=== PATIENT | male | born 1955 | race Caucasian/White ===

== ENCOUNTER 2018-07-04 00:37 | Outpatient (CLI) | payer BC, SELFPAY ==
--- NOTE | 2018-07-04 09:00 | DI.RAD_ITS ---
SYMPTOM/DIAGNOSIS: DYSPHAGIA, R13.10 BARIUM SWALLOW: Fluoroscopy Time: 18 seconds The preliminary films of the chest and neck are unremarkable. Barium was ingested and showed grossly normal hypopharyngeal motility. Esophageal mucosa and motility appears intact. A 12 mm. barium tablet passed through the esophagus into the stomach. CONCLUSION: Negative barium swallow.
== END 2018-07-04 00:57 ==
PROVIDERS: PCP Internal Medicine; Visit Provider Internal Medicine
DX: R13.10 Dysphagia, unspecified (principal)
CPT/HCPCS: 74220

== ENCOUNTER 2018-08-12 06:18 | Day surgery (SDC) | payer BC, SELFPAY ==
[2018-08-12 06:28] VITALS: BP 99/72; PULSE 50; RESP 18; TEMP 35.5; O2SAT 98
--- NOTE | 2018-08-12 06:53 | W.PM.ENDDOP ---
Date of service: 08/12/18 Time of Service: : Endoscopy Report DATE OF PROCEDURE: 08/12/18 PRE-OP DIAGNOSIS: Dysphagia POST-OP DIAGNOSIS: other (mild gastritis and esophagitis) PROCEDURE: EGD with biopsies SURGEON: Gem Johnson ANESTHESIA: other (General/ ASA 2/massiel Jaramillo, MAYA) ESTIMATED BLOOD LOSS: 2 PATHOLOGY: other (Antrum bx and GE junction bx) COMPLICATIONS: None DISPOSITION: same day INDICATIONS: Mr. Magana is a pleasant 63 year old male with a history of GERD and dysphagia. Last EGD was in 2013. Risks, benefits and complications have been reviewed. Complications include but are not limited to bleeding, pain, perforation, sore throat, aspiration, and adverse reaction to the medications. Questions were entertained and answered to their satisfaction and they wished to proceed. No guarantees were given or implied. PROCEDURE START TIME: PROCEDURE END TIME: : FINDINGS: Mild inflammation of the stomach Bile reflux noted Mild inflammation of the esophagus with mild scarring PROCEDURE DESCRIPTION: After informed consent was obtained the patient was take to the procedure room and placed in a supine position. Monitors were applied and a time out was done. The patients name, date of , procedure type, allergies to medications and metal in their body was reviewed. A bite block was placed and the patient was sedated. Once sedated and comfortable the gastroscope was advanced through the oropharynx which was grossly normal into the esophagus. The proximal and mid-esophagus were normal. In the distal esophagus there was mild inflammation noted as well as some mild scarring. The scope was advanced into the stomach and through the pylorus into the 3rd portion of the duodenum. The duodenum was noted to be normal. The scope was retracted back into the stomach, bile was noted in the stomach. Biopsies were done to rule out H. pylori. There were no ulcers. The scope was retro-flexed. The cardia and fundus were noted to be normal. There was no hiatal hernia noted. The scope was retracted back into the esophagus and biopsies were done of the GE junction to rule out Cm's. The Z line was irregular. The GE junction was at 35 cm. The scope was removed and the patient was woken up and taken back to [facility] in stable condition. Follow up: depends on biopsy results. I will keep him on the same medication and call him with results.
--- NOTE | 2018-08-12 06:56 | ENDO_ITS ---
Date of service: 08/12/18 Time of Service: : Endoscopy Report DATE OF PROCEDURE: 08/12/18 PRE-OP DIAGNOSIS: Dysphagia POST-OP DIAGNOSIS: other (mild gastritis and esophagitis) PROCEDURE: EGD with biopsies SURGEON: Gem Johnson ANESTHESIA: other (General/ ASA 2/massiel Jaramillo, MAYA) ESTIMATED BLOOD LOSS: 2 PATHOLOGY: other (Antrum bx and GE junction bx) COMPLICATIONS: None DISPOSITION: same day INDICATIONS: Mr. Magana is a pleasant 63 year old male with a history of GERD and dysphagia. Last EGD was in 2013. Risks, benefits and complications have been reviewed. Complications include but are not limited to bleeding, pain, perforation, sore throat, aspiration, and adverse reaction to the medications. Questions were entertained and answered to their satisfaction and they wished to proceed. No guarantees were given or implied. PROCEDURE START TIME: PROCEDURE END TIME: : FINDINGS: Mild inflammation of the stomach Bile reflux noted Mild inflammation of the esophagus with mild scarring PROCEDURE DESCRIPTION: After informed consent was obtained the patient was take to the procedure room and placed in a supine position. Monitors were applied and a time out was done. The patients name, date of , procedure type, allergies to medications and metal in their body was reviewed. A bite block was placed and the patient was sedated. Once sedated and comfortable the gastroscope was advanced through the oropharynx which was grossly normal into the esophagus. The proximal and mid- esophagus were normal. In the distal esophagus there was mild inflammation noted as well as some mild scarring. The scope was advanced into the stomach and through the pylorus into the 3rd portion of the duodenum. The duodenum was noted to be normal. The scope was retracted back into the stomach, bile was noted in the stomach. Biopsies were done to rule out H. pylori. There were no ulcers. The scope was retro-flexed. The cardia and fundus were noted to be normal. There was no hiatal hernia noted. The scope was retracted back into the esophagus and biopsies were done of the GE junction to rule out Cm's. The Z line was irregular. The GE junction was at 35 cm. The scope was removed and the patient was woken up and taken back to [facility] in stable condition. Follow up: depends on biopsy results. I will keep him on the same medication and call him with results.
--- NOTE | 2018-08-12 06:56 | W.PM.DSUDISC ---
Discharge Plan Disposition Patient Disposition: HOME Condition: Good Discharge Details Reason For Visit: Dysphagia/EGD Attending Provider: Gem Johnson Primary Care Provider: Elias Mclain Home Meds and New Rx's Prescriptions: Continued pantoprazole 40 mg tablet,delayed release (DR/EC) 40 mg PO BID RF: 0 lamotrigine [Lamictal] 25 MG tablet 50 mg PO BID RF: 0 Discharge Instructions Instructions: Upper Endoscopy (DC), Gastritis (DC), Diet for Stomach Ulcers and Gastritis (GEN), Esophagitis (DC) Additional Instructions: Findings: mild inflammation of the stomach and esophagus Follow up:I will call with results of the biopsies. Continue current medications as prescribed Please call if you develop: fevers >101.5 Nausea or Vomiting Abdominal pain that is not transient DAY SURGERY UNIT POST COLONOSCOPY INSTRUCTIONS 1. Because there will be medication in your system for the next 24 hours, you may feel a little sleepy. Your coordination will be affected. Therefore: a. Do not drive or operate dangerous equipment for 24 hours. b. Do not drink alcohol beverages for 24 hours (not even beer). c. Plan to go home and rest for the day. 2. Generally there are no restrictions on your activity after a day or so has gone by, but you may feel a bit fatigued for a few days. 3 After you arrive home you may have a light meal and return to a normal diet as you can tolerate it without feeling sick to your stomach. 4. After surgery, you may feel pain or discomfort. This should be only transient, but if it persists please contact your doctor. 5. If there are any questions regarding the findings of your procedure, please feel free to contact your doctor. 6. If you are unable to contact your doctor with a problem, contact the hospital at [phone]. 7. Continue all your regular medications unless directed otherwise. I understand the above instructions and have no questions. Signature of Patient or Responsible Adult Escort Date/Time Name of Responsible Adult Escort Signature of Nurse Date/Time Activity:: Activity as Tolerated Diet:: As Tolerated Discharge Orders Discharge Orders: Discharge Order (Routine); Ordered 08/12/18 Ordered By: Gem Johnson DS: Diagnosis Discharge Diagnosis (1) H/O esophagogastroduodenoscopy: Status: Chronic (2) Gastritis: Status: Acute (3) Esophagitis determined by endoscopy: Status: Acute
[2018-08-12] MEDS: Lactated Ringers 1,000 ML 80 ML IV (06:57)
[2018-08-12] MEDS: Lidocaine 2% Viscous 15 ML CUP (07:15)
--- NOTE | 2018-08-12 07:24 | STOM_PTH ---
PATIENT: Elias Khan LOC: [facility] U#:[id number] AGE/SX: 63/M ROOM: RE08/12/[address]: Gem Johnson MD : 1955 BED: DIS: 08/12/2018 SPEC #: [id number] RECD: 08/12/18 12:59 STATUS: SAVANNAH RE #: [id number] RAVI: 08/12/18 07:[address]: Gem Johnson DEPT: Surgical Specimen RECD BY: Sylvia Velasquez ENTERED: 08/12/18 13:01 SP TYPE: STOMACH OTHR DR: Elias Mclain Tissues: 1 - STOMACH BIOPSY 2 - ESOPHAGUS BIOPSY Procedures: GROSS AND MICRO LEVEL 4 Comments: [id number]
[2018-08-12 08:15] VITALS: BP 132/75; PULSE 51; RESP 18; TEMP 35.5; O2SAT 100
== END 2018-08-12 08:27 | disposition home or self-care (01) ==
PROVIDERS: PCP Internal Medicine; Visit Provider Surgery
PROC: 0DJ68ZZ Inspection of Stomach, Via Natural or Artificial Opening Endoscopic (ICD-10-PCS; CPT 43235; principal; 2018-08-12 07:30)
DX: R13.10 Dysphagia, unspecified (principal); K20.9 Esophagitis, unspecified; K21.9 Gastro-esophageal reflux disease without esophagitis
CPT/HCPCS: 43239; 88305

== ENCOUNTER 2021-02-22 11:37 | Outpatient (REF) | payer MEDICARE, BC, SELFPAY ==
[2021-02-22 15:04] LABS: Calculated LDL 85 mg/dL (<100); Cholesterol 169 mg/dL (<200); HDL Cholesterol 62 mg/dL (40-60); Triglyceride 112 mg/dL (<150)
== END 2021-02-22 11:38 | disposition home or self-care (01) ==
LOC: NCHCN 11:37
PROVIDERS: PCP Internal Medicine; Visit Provider Internal Medicine
DX: Z13.220 Encounter for screening for lipoid disorders (principal)
CPT/HCPCS: 80061

== ENCOUNTER → 2022-01-17 10:31 | Outpatient (BNVA) | payer MEDICARE, BC, SELFPAY | PROVIDERS: PCP Internal Medicine; Referring Provider Internal Medicine; Visit Provider Surgery | DX: L72.9 Follicular cyst of the skin and subcutaneous tissue, unspecified (principal) | CPT/HCPCS: 11400; 99203 ==

== ENCOUNTER 2023-04-13 08:40 | Outpatient (REF) | payer MEDICARE, BC, SELFPAY ==
[2023-04-13 13:34] LABS: Anion Gap 2.5 mmol/L (3-11); BUN 20 mg/dL (7-18); CO2 31.5 mmol/L (21.0-32.0); CREATININE 1.1 mg/dL (0.70-1.30); Calcium 9.1 mg/dL (8.5-10.1); Chloride 104 mmol/L (98-107); Estimated GFR 73.12 (mL/min/1.73m2); Glucose 118 mg/dL (74-106); Potassium 4.4 mmol/L (3.5-5.1); Sodium 138 mmol/L (136-145)
== END 2023-04-13 08:41 | disposition home or self-care (01) ==
LOC: NCHCN 08:40
PROVIDERS: PCP Internal Medicine; Visit Provider Family Medicine
DX: Z00.00 Encounter for general adult medical examination without abnormal findings (principal)
CPT/HCPCS: 80048

== ENCOUNTER 2024-04-02 11:13 | Outpatient (REF) | payer MEDICARE, BC, SELFPAY ==
[2024-04-02 14:04] LABS: HCT 46.7 % (40.0-50.0); HGB 16.1 g/dL (13.5-17.5); MCH 33.3 pg (27.0-33.0); MCHC 34.5 % (32.0-36.0); MCV 97 fL (80-95); MPV 11.7 fL (8.0-11.0); Platelet Count 171 10^3/uL (130-400); RBC 4.84 10^6/uL (4.36-5.78); RDW 11.5 % (11.8-14.1); RDW-SD 40.9 fL; WBC 8.49 10^3/uL (4.4-10.8)
[2024-04-02 14:12] LABS: Anion Gap 8.7 mmol/L (3-11); BUN 17 mg/dL (7-18); CO2 28.3 mmol/L (21.0-32.0); Calcium 9.3 mg/dL (8.5-10.1); Chloride 105 mmol/L (98-107); Estimated GFR 81.47 (mL/min/1.73m2); Glucose 106 mg/dL (74-106); Potassium 4.2 mmol/L (3.5-5.1); Sodium 142 mmol/L (136-145)
[2024-04-03 08:34] LABS: PSA, Diagnostic 1.6 ng/mL (<=4.5)
== END 2024-04-02 11:14 | disposition home or self-care (01) ==
LOC: NCHCN 11:13
PROVIDERS: PCP Internal Medicine; Visit Provider Family Medicine
DX: K21.9 Gastro-esophageal reflux disease without esophagitis (principal); N40.0 Benign prostatic hyperplasia without lower urinary tract symptoms
CPT/HCPCS: 80048; 85027; 84153

== ENCOUNTER 2024-08-02 11:27 | Outpatient (CLI) | payer MEDICARE, BC, SELFPAY ==
--- NOTE | 2024-08-02 | DI.RAD_ITS ---
Exam(s) XR FINGER LT RING EXAM: XR FINGER LT RING EXAM DATE/TIME: CLINICAL HISTORY: closed traumatic dislocation ICD-10: S63.285A. TECHNIQUE: 2D digital imaging was performed of the left finger. Three views were obtained. PA/AP, oblique, and lateral views were obtained. COMPARISON: None. FINDINGS: BONES: There is a tiny osseous fragment at the ulnar aspect of the head of the proximal phalanx of th e ring finger appreciated on the oblique view. This may represent a small avulsed fracture fragment. No bony destructive lesion is seen. There is a stable deformity of the base of the distal phalanx o f the thumb. JOINTS: No dislocation is present. There are degenerative changes seen in the hand. SOFT TISSUE: Normal. IMPRESSION: 1. There is a tiny density seen on the oblique view adjacent to the head of the proximal phalanx of t he ring finger which may represent a small fracture fragment. 2. No evidence of a dislocation. DATA REPOSITORY: RADIATION DOSE DELIVERED:
--- NOTE | 2024-08-02 12:24 | DI.VRAD_ITS ---
PROCEDURE INFORMATION: Exam: XR Left Finger(s) Exam date and time: 08/02/2024 11:38 AM Age: 69 years old Clinical indication: Injury or trauma; Fall; Other: Closed traumatic dislocation of left ring finger pip; Additional info: Order transferred over labeled incorrectly - is the patient's left ring finger not the index finger TECHNIQUE: Imaging protocol: Radiologic exam of the left fingers. Views: Minimum 2 views. COMPARISON: No relevant prior studies available. FINDINGS: Bones/joints: Tiny bony density adjacent to the ring finger PIP joint. No dislocation. Degenerative changes and subluxation of the 1st IP joint. Soft tissues: Ring finger swelling. IMPRESSION: 1. No dislocation. 2. Tiny bony density adjacent to the ring finger PIP joint which could represent a small fracture fragment or degenerative changes. Dictated and Authenticated by: Ananth Snell MD. Orderin Brigid Ballesteros MD
== END 2024-08-02 11:47 ==
LOC: DI 11:27
PROVIDERS: PCP Internal Medicine; Visit Provider Physician Assistant Medical
DX: S63.285A Dislocation of proximal interphalangeal joint of left ring finger, initial encounter (principal); X58.XXXA Exposure to other specified factors, initial encounter
CPT/HCPCS: 73140

== ENCOUNTER 2025-04-07 10:07 | Outpatient (REF) | payer MEDICARE, BC, SELFPAY ==
[2025-04-07 15:43] LABS: Abs Immature Grans 0.06 10^3/uL (0.0-0.06); HCT 47.5 % (40.0-50.0); HGB 16.1 g/dL (13.5-17.5); Immature Grans % 0.9 %; MCH 32.6 pg (27.0-33.0); MCHC 33.9 % (32.0-36.0); MCV 96 fL (80-95); MPV 12.4 fL (8.0-11.0); Platelet Count 166 10^3/uL (130-400); RBC 4.94 10^6/uL (4.36-5.78); RDW 11.5 % (11.8-14.1); RDW-SD 40.8 fL; WBC 6.47 10^3/uL (4.4-10.8)
[2025-04-07 16:02] LABS: ALT 18 U/L (10-49); AST 26 U/L (<34); Albumin 4.1 g/dL (3.4-5.0); Alkaline Phosphatase 79 U/L (46-116); Anion Gap 7.6 mmol/L (3-11); BUN 17 mg/dL (9-23); Bilirubin, Total 0.50 mg/dL (0.2-1.2); CO2 30.4 mmol/L (20.0-31.0); Calcium 9.6 mg/dL (8.3-10.6); Chloride 103 mmol/L (98-107); Glucose 109 mg/dL (74-106); Potassium 4.6 mmol/L (3.5-5.1); Sodium 141 mmol/L (136-145); Total Protein 6.7 g/dL (5.7-8.2)
== END 2025-04-07 10:08 | disposition home or self-care (01) ==
LOC: NCHCN 10:07
PROVIDERS: PCP Internal Medicine; Visit Provider Family Medicine
DX: R07.9 Chest pain, unspecified (principal)
CPT/HCPCS: 80053; 85025

== ENCOUNTER → 2025-04-20 03:40 | Outpatient (CLI) | payer MEDICARE, BC, SELFPAY ==
--- NOTE | 2025-04-20 | ETT_ITS ---
APPROVED REPORT Exam: Exercise Treadmill Patient Location: Out-Patient Room/Bed: Stress Nurse: Drake Escalona RN Ordering Provider:CHASE MULLEN, Contact Number: [phone] BMI: 23.26 Baseline Rhythm: Sinus Bradycardia. Indications: Chest Pain. Medical History Medical History: BPH; Epilepsy; GERD. Cardiac Medications: Lamotrigine; Pantoprazole. Allergies: Dilantin; Hydrocodone. Cardiac Risk Factors: Family Hx. Previous Cardiac Procedures: None. Pretest Chest Pain Characteristics: None. Exercise History: Physically active. Physical Disabilities: None. Lung Sounds: Clear bilaterally throughout, anterior and posterior. Heart Sounds: S1 and S2 auscultated. Stress Test Details Test: Exercise stress testing was performed using a Martin protocol. Rest Stress HR Resting HR Supine: 50 bpm Max Heart Rate (APMHR): 150 bpm Resting HR Standin bpm Target HR (85% APMHR): 128 bpm Max HR Achieved: 129 bpm % of APMHR: 86 Recovery HR: 62 bpm HR response to stress: Normal HR response to stress. BP Resting BP Supine: 158/78 mmHg Resting BP Standin/78 mmHg Max BP: 202/56 mmHg Recovery BP: 140/76 mmHg BP response to stress: Normal blood pressure response to stress. ECG Resting ECG: Sinus Bradycardia. Ectopy: None. Stress ECG: Sinus Tachycardia. ST Change: No significant ST segment changes noted Arrhythmia: Rare PVC's; Rare Couplet. Recovery ECG: Sinus Rhythm. Recovery ST Change: No significant ST segment changes noted Recovery Arrhythmia: None. Clinical Reason for Termination: Target HR Achieved, Chest pain/Anginal equivalent, Stress Symptoms: Chest pain/pressure. Exercise duration: 09 min43 sec Highest Stage Reached: Stage 4: 4.2 mph at 16% grade. Exercise capacity: 11.35 METs Angina Score: Non-Limiting Unger Treadmill Score: 5.0 Rate Pressure Product: [id number] Stress ECG Conclusion 1. Resting electrocardiogram is normal 2. Patient exercised on the Martin protocol completed workload of 11 METS 3. Normal heart rate and blood pressure response to exercise. The patient achieved 86% of maximal predicted heart rate for age 4. The electrocardiographic portion of the test did not demonstrate changes consistent with myocardial ischemia 5. There were no significant dysrhythmias Unger Treadmill Score is 5.0 which is Low risk. Stress Test Summary STAGE Time (mins) Speed (mph) Grade (%) HR BP SpO2 SYMPTOMS METS Supine 50 158/78 98 Pt. denied any chest pain/pressure or SOB. Standing 54 140/78 98 Pt. denied any chest pain/pressure or SOB. 1 3 1.7 10 90 184/68 95 Pt. c/o 1/10, dull, sternal, chest pressure. 4.5 2 6 2.5 12 104 188/78 93 Pt. c/o 2/10, dull, sternal, chest pressure at the beginning of Stage 2, which pt. stated quickly lessened to 1/10, dull, sternal chest pressure as he continued to exerc ise in Stage 2. Pt. stated, This is what keeps happening when I exercise. I get warmed up and the chest pain/pressure lessens and resolves. 7 3 9 3.4 14 118 198/70 93 Pt. c/o 1/10, dull, sternal, chest pressure. 10 4 12 4.2 16 128 Stress test stopped due to RN noting ST changes. 13 1 min recovery 86 202/56 96 Pt. c/o 1/10, dull, sternal, chest pressure, that he states is resolving. 3 min recovery 70 190/76 98 Pt. denied any chest pain/pressure. 6 min recovery 62 140/76 98 Pt. denied any chest pain/pressure. Pt. performed an ETT stress test using the Martin protocol. ETT stress test was stopped when pt. achieved a heart rate higher than the target heart rate and began c/o 1-2/10, dull, sternal, chest pressure that was accompanied by ST changes. ST changes were noted to recover to baseline prior to the pt. leaving the Stress Lab. During Stage 1 of exercise, pt. c/o 1/10, dull, sternal chest pressure. During Stage 2 of exercise, pt. c/o 2/10, dull, sternal, chest pressure, which pt. stated quickly lessened to 1/10, dull, sternal, chest pressure as he continued to exercise in Stage 2. Pt. stated, This is what keeps happening when I exercise. I get warmed up and the chest pain/pressure lessens and resolves. During Stage 3 of exercise, pt. c/o 1/10, dull, sternal, chest pressure. During Stage 4 of exercise, stress test was stopped due to RN noting ST changes. Downsloping and upsloping ST depressions ranging from 1-5 mm were noted in leads II, III, aVF, V4, V5, and V6. During Stage 1 of recovery, pt. c/o 1/10, dull, sternal, chest pressure, that he states is resolving. Downsloping and upsloping ST depressions were noted ranging from 1-5 mm in leads II, III, aVF, V4, V5, and V6. During Stage 2 of recovery, pt. denied any chest pain/pressure, and ST depressions were quickly recovering. During Stage 3 of recovery, pt. denied any chest pain/pressure, and ST depressions had recovered back to baseline. Pt. stated that all symptoms had resolved back to baseline prior to the pt. leaving the Stress Lab. Pt. was conversing pleasantly with nursing staff upon leaving the Stress Lab. Pt. left ambulatory in no apparent distress.
== END ==
PROVIDERS: PCP Family Medicine; Visit Provider Family Medicine
DX: R07.9 Chest pain, unspecified (principal)
CPT/HCPCS: 93016; 93018; 93017